=== PATIENT | male | born 1990 | race Caucasian/White ===

== ENCOUNTER 2020-01-07 09:50 | Emergency (ER) | payer BC, OTHER ==
[~2020-01-07] VITALS: Ht 175.3 cm; Wt 90.9 kg
[~2020-01-07 09:50] MED LIST: No Historical Meds; PERC5TAB8
[2020-01-07] MEDS ORDERED: PRED20TA (10:07)
[2020-01-07] MEDS ORDERED: NON-325T5 PO (10:07)
[2020-01-07 10:59] LABS: BASO # 0.1 10^3/uL (0.0-0.2); BASO % 0.5 % (0.0-1.0); EOS # 0.1 10^3/uL (0.0-0.5); EOS % 1.1 % (0.0-3.0); HEMATOCRIT 44.1 % (42.0-52.0); LYMPH # 2.7 10^3/uL (1.5-5.0); LYMPH % 25.8 % (24.0-44.0); MEAN CORPUSCULAR HEMOGLOBIN 31.2 pg (27.0-33.0); MEAN CORPUSCULAR VOLUME 91.7 fl (80.0-96.0); MONO % 9.5 % (0.0-5.0); NEUTROPHILS # 6.6 10^3/uL (1.5-8.5); NEUTROPHILS % 62.5 % (36.0-66.0); PLATELET COUNT, AUTOMATED 221 10^3/uL (150-450); RED BLOOD COUNT 4.81 10^6/uL (4.30-6.10); WHITE BLOOD COUNT 10.6 10^3/uL (4.0-10.0)
--- NOTE | 2020-01-07 11:13 | REP ---
CHEST, SINGLE VIEW: There is no evidence of acute infiltrate. No pleural effusion is seen. The heart is normal in size. The mediastinal silhouette is unremarkable. The visualized osseous structures are intact. IMPRESSION: No acute pulmonary disease. Electronically Signed by Nakul Poe MD 01/07/2020 03:57 P
[2020-01-07 11:27] LABS: ALT/SGPT 45 U/L (12-78); BILIRUBIN,DIRECT 0.1 MG/DL (0.0-0.2); BILIRUBIN,TOTAL 0.4 MG/DL (0.2-1.0); BLOOD UREA NITROGEN 12 MG/DL (7-18); CALCIUM LEVEL 8.9 MG/DL (8.5-10.1); CARBON DIOXIDE LEVEL 30 MEQ/L (21-32); CHLORIDE LEVEL 106 MEQ/L (98-107); CK-MB VALUE MASS < 1.0 NG/ML (<3.6); CPK CREATINE PHOSPHOKINASE 76 U/L (39-308); CREATININE FOR GFR 0.78 MG/DL (0.70-1.30); GLOMERULAR FILTRATION RATE > 60.0 (>60); GLUCOSE, FASTING 76 MG/DL (70-100); LIPASE 148 U/L (73-393); MB/CK RELATIVE INDEX 1.32 (< OR =4); POTASSIUM SERUM 3.7 MEQ/L (3.5-5.1); SODIUM LEVEL 142 MEQ/L (136-145); TOTAL PROTEIN 7.3 GM/DL (6.4-8.2); TROPONIN I < 0.02 NG/ML (< 0.10)
[2020-01-07] MEDS ORDERED: ISOVUE-370 76% 100ML VIAL (Q9967) As Ordered ONE (12:06)
--- NOTE | 2020-01-07 12:45 | REP ---
CT pulmonary angiogram: With IV contrast. History: Rule out pulmonary embolism. Comparison studies: No comparison CT study Contrast dose: 75 ML of Isovue [address] technique: Helical scanning is acquired and overlapping 1.5 mm and contiguous 3 mm axial images are reformatted. In addition, maximum intensity projection and multiplanar re-formation images are generated in sagittal and coronal imaging projections. CT pulmonary angiographic findings: There is good opacification of the pulmonary arterial tree. There is no vessel cutoff or filling defect to suggest pulmonary embolism. Thoracic aorta shows no evidence of aneurysm or dissection. No hilar or mediastinal mass or adenopathy is observed. No pleural or pericardial effusion is seen. The lung naranjo are clear. No infiltrate, pulmonary mass, or significant pulmonary nodule is appreciated. No significant bony abnormality is seen. There is a 2.9 cm cyst in the upper pole right kidney. Normal adrenal glands are seen. The visualized upper abdominal structures are otherwise unremarkable. Impression: No CT evidence of pulmonary embolus. No active disease. 2.9 cm cyst upper pole right kidney. Otherwise normal exam. Electronically Signed by Paul Lai MD 01/07/2020 12:36 P
[2020-01-07 14:47] LABS: CK-MB VALUE MASS < 1.0 NG/ML (<3.6); CPK CREATINE PHOSPHOKINASE 59 U/L (39-308); MB/CK RELATIVE INDEX 1.69 (< OR =4); TROPONIN I < 0.02 NG/ML (< 0.10)
[2020-01-07 15:30] VITALS: BP 121/70
--- NOTE | 2020-01-08 06:51 | ECGEPIP ---
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
--- NOTE | 2020-01-08 06:57 | ECGEPIP ---
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
== END 2020-01-07 15:37 | disposition home or self-care (01) ==
LOC: EDBD 09:50 → M ED 09:50
DX: R07.89 Other chest pain (principal); N28.1 Cyst of kidney, acquired
CPT/HCPCS: 71045; 71275; 80048; 80076; 82550; 82553; 83690; 85025; 93005; 93041; 94760; 99285; Q9967

== ENCOUNTER → 2020-01-15 | Outpatient (CLI) | payer BC ==
[~2020-01-15] MED LIST changes: +NON-325T5 PO; +PRED20TA
[2020-01-18 00:08] LABS: ANTINUCLEAR ANTIBODIES DIRECT Negative (Negative); Lyme Disease IgG/IgM Antibodie <0.91 ISR (0.00-0.90); Lyme Disease IgM Ab Quantitati <0.80 index (0.00-0.79)
== END ==
LOC: M WUC 13:51
PROVIDERS: ATTEND Family Medicine
DX: R53.81 Other malaise (principal)

== ENCOUNTER → 2020-02-11 | Outpatient (REF) | payer BC | LOC: M SMT 12:55 | PROVIDERS: ATTEND Urology | DX: Z30.2 Encounter for sterilization (principal) ==

== ENCOUNTER → 2020-04-21 | Outpatient (REF) | payer BC ==
[2020-04-21 11:46] LABS: SEMEN APPEARANCE OPAQUE (OPAQUE); SEMEN VISCOSITY LIQUID (LIQUID); SEMEN VOLUME 1.8 ml (2.0-5.0); WBC CONCENTRATION <=1 M/ml (<=1 M/ml)
== END ==
LOC: M SMT 11:22
PROVIDERS: ATTEND Urology
DX: Z98.52 Vasectomy status (principal)